=== PATIENT | male | born 1945 | race Caucasian/White ===

== ENCOUNTER 2017-01-16 14:18 | Outpatient (CLI) | payer MEDICARE, OTHER ==
[2017-01-16 14:44] LABS: BASOPHILS # (AUTO) 0.1 10^3/uL (0.0-0.1); BASOPHILS % (AUTO) 0.8 %; EOSINOPHILS # (AUTO) 0.1 10^3/uL (0.0-0.7); EOSINOPHILS % (AUTO) 2.2 %; HCT - HEMATOCRIT 39.7 % (42.0-52.0); HGB - HEMOGLOBIN 13.3 g/dL (14.0-18.0); LYMPHOCYTES # (AUTO) 1.9 10^3/uL (1.5-3.5); LYMPHOCYTES % (AUTO) 28.1 %; MEAN CORPUSCULAR HEMOGLOBIN 30.5 pg (27.0-31.0); MEAN CORPUSCULAR HGB CONC 33.4 g/dL (32.0-36.0); MEAN CORPUSCULAR VOLUME 91.4 fL (80.0-94.0); MEAN PLATELET VOLUME 6.8 fL (7.4-11.4); MONOCYTES # (AUTO) 0.5 10^3/uL (0.0-1.0); MONOCYTES % (AUTO) 8.3 %; NEUTROPHILS % (AUTO) 60.6 %; RED BLOOD COUNT 4.34 10^6/uL (4.70-6.10); RED CELL DISTRIBUTION WIDTH 13.7 % (12.0-15.0); UNCORRECTED WHITE BLOOD COUNT 6.6 x10^3/uL; WHITE BLOOD COUNT 6.6 x10^3/uL (4.8-10.8)
[2017-01-16 15:00] LABS: ALBUMIN/GLOBULIN RATIO 1.3 (1.0-2.2); BILIRUBIN,TOTAL 0.4 mg/dL (0.2-1.0); CALCIUM 9.4 mg/dL (8.5-10.3); CREATININE 1.1 mg/dL (0.6-1.2); POTASSIUM 4.5 mmol/L (3.5-5.0); TOTAL PROTEIN 7.3 g/dL (6.7-8.2)
== END 2017-01-16 14:19 | disposition home or self-care (01) ==
LOC: LAB 14:18
PROVIDERS: ATTEND Internal Medicine Hematology & Oncology
DX: C34.90 Malignant neoplasm of unspecified part of unspecified bronchus or lung (principal)
CPT/HCPCS: 36415; 80053; 85025

== ENCOUNTER 2017-12-27 14:27 | Outpatient (CLI) | payer MEDICARE, OTHER ==
[2017-12-27 15:08] LABS: ALBUMIN 3.9 g/dL (3.2-5.5); ALBUMIN/GLOBULIN RATIO 1.1 (1.0-2.2); BILIRUBIN,TOTAL 0.6 mg/dL (0.2-1.0); CALCIUM 9.2 mg/dL (8.5-10.3); CREATININE 0.9 mg/dL (0.6-1.2); TOTAL PROTEIN 7.4 g/dL (6.7-8.2)
[2017-12-27 15:13] LABS: BASOPHILS # (AUTO) 0.1 10^3/uL (0.0-0.1); BASOPHILS % (AUTO) 1.1 %; EOSINOPHILS # (AUTO) 0.1 10^3/uL (0.0-0.7); EOSINOPHILS % (AUTO) 2.2 %; HGB - HEMOGLOBIN 12.9 g/dL (14.0-18.0); LYMPHOCYTES # (AUTO) 1.9 10^3/uL (1.5-3.5); LYMPHOCYTES % (AUTO) 27.9 %; MEAN CORPUSCULAR HEMOGLOBIN 32.6 pg (27.0-31.0); MEAN CORPUSCULAR HGB CONC 35.6 g/dL (32.0-36.0); MEAN CORPUSCULAR VOLUME 91.7 fL (80.0-94.0); MEAN PLATELET VOLUME 7.4 fL (7.4-11.4); MONOCYTES # (AUTO) 0.7 10^3/uL (0.0-1.0); MONOCYTES % (AUTO) 9.7 %; NEUTROPHILS % (AUTO) 59.1 %; PLT - PLATELET COUNT 282 10^3/uL (130-450); RED BLOOD COUNT 3.96 10^6/uL (4.70-6.10); RED CELL DISTRIBUTION WIDTH 14.2 % (12.0-15.0); WHITE BLOOD COUNT 6.8 x10^3/uL (4.8-10.8)
== END 2017-12-27 14:28 | disposition home or self-care (01) ==
LOC: LAB 14:27
PROVIDERS: ATTEND Internal Medicine Hematology & Oncology
DX: C34.90 Malignant neoplasm of unspecified part of unspecified bronchus or lung (principal)
CPT/HCPCS: 36415; 80053; 85025

== ENCOUNTER 2018-01-02 12:44 | Outpatient (CLI) | payer MEDICARE, OTHER ==
--- NOTE | 2018-01-02 22:01 | CT Report ---
Reason: SHORTNESS OF BREATH Procedure Date: 01/02/2018 Accession Number: [id number] / [id number] Procedure: CT - Chest W/O CPT Code: FULL RESULT: EXAM: CT CHEST WITHOUT CONTRAST. EXAM DATE: 01/02/2018 12:58 PM. CLINICAL HISTORY: Shortness of breath. COMPARISONS: Chest without 01/16/2017 2:53 PM. TECHNIQUE: Routine helical CT imaging was performed through the chest. IV contrast: None. Reconstructions: Coronal and sagittal. In accordance with CT protocol optimization, one or more of the following dose reduction techniques were utilized for this exam: automated exposure control, adjustment of mA and/or KV based on patient size, or use of iterative reconstructive technique. FINDINGS: Lungs/Pleura: There is a small granuloma in the right mid lung. There are no soft tissue pulmonary nodules. There are no masses nor infiltrates. Mediastinum: The heart is not enlarged. There are moderately advanced atherosclerotic vascular calcifications of the coronary arteries. Bones: Unremarkable. Visualized Abdomen: There is a cyst in the left lobe of the liver which measures 31 mm and a cyst along the anterior border of the right kidney measuring 30 mm x 16 mm. There is cholelithiasis. Other: None. IMPRESSION: 1. No evidence for recurrent mass nor metastatic disease to the chest. 2. Calcified granuloma in the right midlung. 3. Moderately advanced atherosclerotic vascular calcifications. 4. Cholelithiasis. 5. Hepatic cyst and renal cyst. No significant changes. RADIA
== END 2018-01-02 12:45 | disposition home or self-care (01) ==
LOC: DI 12:44
PROVIDERS: ATTEND Internal Medicine Hematology & Oncology
DX: J84.10 Pulmonary fibrosis, unspecified (principal); I25.10 Atherosclerotic heart disease of native coronary artery without angina pectoris; K80.20 Calculus of gallbladder without cholecystitis without obstruction; K76.89 Other specified diseases of liver; Q61.01 Congenital single renal cyst
CPT/HCPCS: 71250

== ENCOUNTER 2018-05-16 04:12 | Outpatient (CLI) | payer MEDICARE, OTHER | END 2018-05-16 04:13 | disposition critical access hospital (66) | LOC: EMS 04:12 | PROVIDERS: ATTEND Surgery | DX: R11.2 Nausea with vomiting, unspecified (principal) | CPT/HCPCS: A0425; A0427 ==

== ENCOUNTER 2018-05-16 04:31 | Emergency (ER) | payer MEDICARE, OTHER ==
[2018-05-16] MEDS ORDERED: SODIUM CHLORIDE 0.9% 1,000 ML IV STA (04:35)
[2018-05-16] MEDS ORDERED: IOVERSOL 320 100 ML VIAL IVP ONE ×2 (04:54→05:42)
[2018-05-16 05:02] LABS: BASOPHILS # (AUTO) 0.1 10^3/uL (0.0-0.1); BASOPHILS % (AUTO) 0.5 %; EOSINOPHILS % (AUTO) 0.4 %; HGB - HEMOGLOBIN 13.4 g/dL (14.0-18.0); LYMPHOCYTES # (AUTO) 1.4 10^3/uL (1.5-3.5); LYMPHOCYTES % (AUTO) 14.1 %; MEAN CORPUSCULAR HEMOGLOBIN 30.7 pg (27.0-31.0); MEAN CORPUSCULAR HGB CONC 33.3 g/dL (32.0-36.0); MEAN CORPUSCULAR VOLUME 92.2 fL (80.0-94.0); MEAN PLATELET VOLUME 7.3 fL (7.4-11.4); MONOCYTES # (AUTO) 0.8 10^3/uL (0.0-1.0); MONOCYTES % (AUTO) 8.4 %; NEUTROPHILS # (AUTO) 7.5 10^3/uL (1.5-6.6); NEUTROPHILS % (AUTO) 76.6 %; PLT - PLATELET COUNT 274 10^3/uL (130-450); RED BLOOD COUNT 4.37 10^6/uL (4.70-6.10); RED CELL DISTRIBUTION WIDTH 13.3 % (12.0-15.0); WHITE BLOOD COUNT 9.8 x10^3/uL (4.8-10.8)
[2018-05-16 05:14] LABS: ALBUMIN 3.7 g/dL (3.2-5.5); ALBUMIN/GLOBULIN RATIO 1.2 (1.0-2.2); BILIRUBIN,TOTAL 0.9 mg/dL (0.2-1.0); CALCIUM 8.7 mg/dL (8.5-10.3); CREATININE 1.1 mg/dL (0.6-1.2); TOTAL PROTEIN 6.8 g/dL (6.7-8.2)
--- NOTE | 2018-05-16 05:22 | XRAY Report ---
Reason: Chest Pain Procedure Date: 05/16/2018 Accession Number: [id number] / [id number] Procedure: XR - Chest 1 View X-Ray CPT Code: 69071 FULL RESULT: EXAM: CHEST RADIOGRAPHY EXAM DATE: 05/16/2018 05:12 AM. CLINICAL HISTORY: Chest pain. COMPARISON: CHEST W/O 01/02/2018 12:56 PM. TECHNIQUE: 1 view. FINDINGS: Lungs/Pleura: Previous left upper lobectomy. No focal pneumonia or edema. Known emphysema. Small right mid lung calcified granuloma. Mediastinum: Within exam limitations, the cardiomediastinal contour is normal. Other: None. IMPRESSION: Emphysema without acute process seen in the chest. RADIA
--- NOTE | 2018-05-16 06:12 | CT Report ---
Reason: Vomiting Procedure Date: 05/16/2018 Accession Number: [id number] / [id number] Procedure: CT - Abdomen/Pelvis W CPT Code: FULL RESULT: EXAM: CT ABDOMEN AND PELVIS EXAM DATE: 05/16/2018 05:46 AM. CLINICAL HISTORY: Vomiting. COMPARISONS: None. TECHNIQUE: Routine helical CT imaging was performed through the abdomen and pelvis. IV contrast: 80ml optiray 320. Enteric contrast: No. Reconstructions: Coronal and sagittal. In accordance with CT protocol optimization, one or more of the following dose reduction techniques were utilized for this exam: automated exposure control, adjustment of mA and/or KV based on patient size, or use of iterative reconstructive technique. FINDINGS: Lung Bases: Mild atelectasis or infiltrate at the right base. Coronary artery calcifications. Liver: Fatty infiltration. Cysts measuring up to 3.2 cm. Gallbladder/Bile Ducts: Calcified stone at the neck measuring 7 mm. There could be early cholecystitis. Spleen: Normal. Pancreas: Normal. Adrenal Glands: Normal. Kidneys: Small bilateral cysts. No masses or hydronephrosis. Peritoneal Cavity/Bowel: No bowel obstruction seen. Colonic diverticula. No definite diverticulitis. No free air or free fluid. Umbilical hernia containing fat. Appendix is not well seen. No evidence of appendicitis. Pelvic Organs: Normal. The bladder and visualized pelvic organs are within normal limits. Vasculature: Moderate atherosclerosis. No aortic aneurysm. Bones: No aggressive lytic or blastic abnormality seen. Other: None. IMPRESSION: 1. There is a 7 mm stone at the gallbladder neck. Early cholecystitis not excluded. 2. Mild right basilar atelectasis or infiltrate. Coronary artery calcifications. 3. Fatty liver. Liver cysts measuring up to 3.2 cm. 4. Colonic diverticula. No definite diverticulitis. RADIA
--- NOTE | 2018-05-16 06:42 | ED Physician Documentation ---
PD HPI NVD - Stated complaint Stated Complaint: N/V - Chief complaint Chief Complaint: Abd Pain - History obtained from History obtained from: Patient - History of Present Illness Timing - onset: How many days ago (4) Timing - duration: Days (4) Timing - details: Gradual onset Pain level max: 3 Pain level now: 3 Associated symptoms: Abdominal pain Contributing factors: No: Sick contact, Bad food, Travel Improved by: No: Eating, Laying still Worsened by: No: Eating, Moving, Breathing Review of Systems Ten Systems: 10 systems reviewed and negative Constitutional: reports: Reviewed and negative Eyes: reports: Reviewed and negative Ears: reports: Reviewed and negative Nose: reports: Reviewed and negative Throat: reports: Reviewed and negative Cardiac: reports: Reviewed and negative Respiratory: reports: Reviewed and negative GI: reports: Reviewed and negative : reports: Reviewed and negative Skin: reports: Reviewed and negative Musculoskeletal: reports: Reviewed and negative Neurologic: reports: Reviewed and negative Psychiatric: reports: Reviewed and negative Endocrine: reports: Reviewed and negative Immunocompromised: reports: Reviewed and negative PD PAST MEDICAL HISTORY - Past Medical History Past Medical History: Yes Respiratory: Other Other Past Medical History: Lung CA 4 years ago - Past Surgical History Past Surgical History: Yes Cardiovascular: Lobectomy - Present Medications Home Medications: Ambulatory Orders Medication Instructions Recorded Confirmed No Known Home Medications 05/16/18 05/16/18 - Allergies Allergies/Adverse Reactions: Allergies Allergy/AdvReac Type Severity Reaction Status Date / Time No Known Drug Allergies Allergy Verified 05/16/18 04:37 - Social History Does the pt smoke?: No Smoking Status: Never smoker Does the pt drink ETOH?: No Does the pt have substance abuse?: No - Immunizations Immunizations are current?: Yes - POLST Patient has POLST: No PD ED PE NORMAL - Vitals Vital signs reviewed: Yes - General General: Alert and oriented X 3, No acute distress - HEENT HEENT: PERRL - Neck Neck: Supple, no meningeal sign - Cardiac Cardiac: RRR, No murmur - Respiratory Respiratory: Clear bilaterally - Abdomen Abdomen: Normal bowel sounds, Soft, Non tender, Non distended - Derm Derm: Warm and dry - Extremities Extremities: No deformity - Neuro Neuro: Alert and oriented X 3 - Psych Psych: Normal mood, Normal affect Results - Vitals Vitals: Vital Signs - 24 hr 05/16/18 05/16/18 05/16/18 04:32 04:46 05:45 Temperature 37.2 C Heart Rate 77 67 78 Respiratory 16 12 20 Rate Blood Pressure 151/86 H 138/80 H 155/95 H O2 Saturation 95 97 97 05/16/18 06:37 Temperature Heart Rate 66 Respiratory 24 Rate Blood Pressure 138/84 H O2 Saturation 95 Oxygen O2 Source Room air - EKG (time done) 1641 Rhythm: NSR [place]: Normal Intervals: Normal LA, QRS normal. No: Wide QRS QRS: Normal Ischemia: Normal ST segments - Labs Labs: Laboratory Tests 05/16/18 05/16/18 05/16/18 04:45 04:45 04:45 WBC 9.8 RBC 4.37 L Hgb 13.4 L Hct 40.3 L MCV 92.2 MCH 30.7 MCHC 33.3 RDW 13.3 Plt Count 274 MPV 7.3 L Neut # (Auto) 7.5 H Lymph # (Auto) 1.4 L [place] # (Auto) 0.8 Eos # (Auto) 0.0 Baso # (Auto) 0.1 Absolute Nucleated RBC 0.00 Nucleated RBC % 0.0 Sodium 136 Potassium 3.7 Chloride 100 L Carbon Dioxide 27 Anion Gap 9.0 BUN 22 H Creatinine 1.1 Estimated GFR (MDRD) 65 L Glucose 128 H Calcium 8.7 Total Bilirubin 0.9 AST 18 ALT 15 Alkaline Phosphatase 100 Troponin I < 0.04 Total Protein 6.8 Albumin 3.7 Globulin 3.1 Albumin/Globulin Ratio 1.2 Lipase 28 05/16/18 04:45 WBC RBC Hgb Hct MCV MCH MCHC RDW Plt Count MPV Neut # (Auto) Lymph # (Auto) [place] # (Auto) Eos # (Auto) Baso # (Auto) Absolute Nucleated RBC Nucleated RBC % Sodium Potassium Chloride Carbon Dioxide Anion Gap BUN Creatinine Estimated GFR (MDRD) Glucose Calcium Total Bilirubin AST ALT Alkaline Phosphatase Troponin I Total Protein Albumin Globulin Albumin/Globulin Ratio Lipase 25 - Rads (name of study) CT Abd Pel Radiology: Final report received (Gallbladder in neck, possible cholecystitis) PD MEDICAL DECISION MAKING - ED course Complexity details: reviewed results, re-evaluated patient, considered differential, d/w patient ED course: 73-year-old male with 4 days of vomiting. Possible cholecystitis on CT scan. Ultrasound pending at time of sign out to incoming provider.
--- NOTE | 2018-05-16 07:36 | Ultrasound Report ---
Reason: RUQ abd pain, vomiting Procedure Date: 05/16/2018 Accession Number: [id number] / [id number] Procedure: US - Abdomen Limited CPT Code: FULL RESULT: EXAM: ABDOMEN ULTRASOUND LIMITED, RUQ EXAM DATE: 05/16/2018 07:00 AM. CLINICAL HISTORY: RUQ abd pain, vomiting. COMPARISON: CT ABDOMEN/PELVIS W/ 05/16/2018 5:29 AM. TECHNIQUE: Real-time scanning was performed with static images obtained. FINDINGS: Liver: Normal in size and echotexture. The right lobe of liver measures up to 15.6 cm. There are multiple hepatic cysts, the largest of which measures approximately 3 cm in diameter, as seen on recent prior CT. In the anterior aspect of the right lobe of the liver, there is a homogeneous hyperechoic ovoid focus measuring 0.7 x 0.6 x 0.4 cm. Main portal vein flow: Hepatopetal. Gallbladder: A mobile shadowing gallstone is present. No gallbladder wall thickening, pericholecystic fluid, or sonographic Lino sign. Biliary System: CBD measures 4 mm. No intrahepatic or extrahepatic ductal dilatation. Other: No right-sided hydronephrosis. There is a simple exophytic renal cortical cyst at the superior pole of the right kidney measuring up to 2.7 cm, as seen on recent prior CT. IMPRESSION: 1. Cholelithiasis. No evidence of acute cholecystitis. 2. Subcentimeter ovoid homogeneous hyperechoic focus in the right lobe of the liver. Incidental homogeneous hyperechoic liver lesions discovered in patients without known malignancy or liver disease are almost always hepatic hemangiomas. Tavo Spivey., Jas Bianchi., Richa Kline., Tristen Waterman. FRANCISCO
--- NOTE | 2018-05-16 07:54 | ED Physician Documentation ---
PD HPI NVD - Stated complaint Stated Complaint: N/V - Chief complaint Chief Complaint: Abd Pain PD PAST MEDICAL HISTORY - Past Medical History Past Medical History: Yes Respiratory: Other Other Past Medical History: Lung CA 4 years ago - Past Surgical History Past Surgical History: Yes Cardiovascular: Lobectomy - Present Medications Home Medications: Ambulatory Orders Medication Instructions Recorded Confirmed Ondansetron Odt [Zofran] 4 mg TL Q6H PRN #10 tablet 05/16/18 - Allergies Allergies/Adverse Reactions: Allergies Allergy/AdvReac Type Severity Reaction Status Date / Time No Known Drug Allergies Allergy Verified 05/16/18 04:37 - Social History Does the pt smoke?: No Smoking Status: Never smoker Does the pt drink ETOH?: No Does the pt have substance abuse?: No - Immunizations Immunizations are current?: Yes - POLST Patient has POLST: No Results - Vitals Vitals: Vital Signs - 24 hr 05/16/18 05/16/18 05/16/18 04:32 04:46 05:45 Temperature 37.2 C Heart Rate 77 67 78 Respiratory 16 12 20 Rate Blood Pressure 151/86 H 138/80 H 155/95 H O2 Saturation 95 97 97 05/16/18 05/16/18 06:37 08:07 Temperature Heart Rate 66 70 Respiratory 24 22 Rate Blood Pressure 138/84 H 139/79 H O2 Saturation 95 96 Oxygen O2 Source Room air - Labs Labs: Laboratory Tests 05/16/18 05/16/18 05/16/18 04:45 04:45 04:45 WBC 9.8 RBC 4.37 L Hgb 13.4 L Hct 40.3 L MCV 92.2 MCH 30.7 MCHC 33.3 RDW 13.3 Plt Count 274 MPV 7.3 L Neut # (Auto) 7.5 H Lymph # (Auto) 1.4 L [place] # (Auto) 0.8 Eos # (Auto) 0.0 Baso # (Auto) 0.1 Absolute Nucleated RBC 0.00 Nucleated RBC % 0.0 Sodium 136 Potassium 3.7 Chloride 100 L Carbon Dioxide 27 Anion Gap 9.0 BUN 22 H Creatinine 1.1 Estimated GFR (MDRD) 65 L Glucose 128 H Calcium 8.7 Total Bilirubin 0.9 AST 18 ALT 15 Alkaline Phosphatase 100 Troponin I < 0.04 Total Protein 6.8 Albumin 3.7 Globulin 3.1 Albumin/Globulin Ratio 1.2 Lipase 28 05/16/18 04:45 WBC RBC Hgb Hct MCV MCH MCHC RDW Plt Count MPV Neut # (Auto) Lymph # (Auto) [place] # (Auto) Eos # (Auto) Baso # (Auto) Absolute Nucleated RBC Nucleated RBC % Sodium Potassium Chloride Carbon Dioxide Anion Gap BUN Creatinine Estimated GFR (MDRD) Glucose Calcium Total Bilirubin AST ALT Alkaline Phosphatase Troponin I Total Protein Albumin Globulin Albumin/Globulin Ratio Lipase 25 - Rads (name of study) u/s abdomen Radiology: Prelim report reviewed (Impression: 1. Cholelithiasis. No evidence of acute cholecystitis. Subcentimeter ovoid homogeneous hyperechoic focus in the right lobe of the liver. Incidental homogenous hyperechoic liver lesions discovered in patients with out known malignancy or liver disease are almost always hepatic hemangiomas), EMP read indepedently, See rad report Procedures - IVC sono (time) 0825 Bedside IVC sono: IVC measures (cm) (1.07), IVC collapsed c insp (cm) (complete), Dehydration (est 1 + liter deficit after 1st liter is in.) PD MEDICAL DECISION MAKING - ED course Complexity details: considered differential, d/w patient ED course: Previously well 73-year-old male has developed nausea and vomiting for the past 4 days. He denies any abdominal pain associated with this states it is not been able to hold any food down he has been able to hold only minimal amounts of liquids down. He denies any postprandial pain by history. CT scan of his abdomen demonstrates no evidence of an obstruction and there is evidence of cholecystitis on CT scan. This is not confirmed on formal ultrasound. There are mobile gallstones. The patient has improvement immediately with the use of the Zofran. He is administered a liter of saline and at the time of my evaluation he continues to have a deficit estimated at 1+ liter and a second liter of saline is administered. Departure - Departure Disposition: 01 Home, Self Care Clinical Impression: Gastroenteritis, Dehydration Instructions: ED Dehydration, ED Gastroenteritis Viral Follow-Up: Rodrick Darnell MD [Primary Care Provider] - Prescriptions: Ondansetron Odt [Zofran] 4 mg TL Q6H PRN #10 tablet PRN Reason: Nausea / Vomiting
[2018-05-16] MEDS ORDERED: SODIUM CHLORIDE 0.9% 1,000 ML IV ONE (08:28)
[2018-05-16] MEDS ORDERED: ONDANSETRON ODT 4 MG TABLET TL STA (09:53)
[2018-05-16 10:08] VITALS: BP 145/83
== END 2018-05-16 10:08 | disposition home or self-care (01) ==
LOC: EDUNIT# → ED 04:31
DX: K52.9 Noninfective gastroenteritis and colitis, unspecified (principal); E86.0 Dehydration; K80.20 Calculus of gallbladder without cholecystitis without obstruction; K76.9 Liver disease, unspecified; Z85.118 Personal history of other malignant neoplasm of bronchus and lung
CPT/HCPCS: 36415; 71045; 74177; 76705; 80053; 83690; 84484; 85025; 93005; 96360; 96361; 99283; 99284; Q0162; Q9967

== ENCOUNTER 2018-05-21 10:58 | Emergency (ER) | payer MEDICARE, OTHER ==
[2018-05-21 13:05] LABS: BASOPHILS # (AUTO) 0.1 10^3/uL (0.0-0.1); EOSINOPHILS % (AUTO) 0.3 %; HGB - HEMOGLOBIN 14.6 g/dL (14.0-18.0); LYMPHOCYTES # (AUTO) 1.5 10^3/uL (1.5-3.5); LYMPHOCYTES % (AUTO) 16.5 %; MEAN CORPUSCULAR HEMOGLOBIN 30.4 pg (27.0-31.0); MEAN CORPUSCULAR HGB CONC 33.6 g/dL (32.0-36.0); MEAN CORPUSCULAR VOLUME 90.5 fL (80.0-94.0); MEAN PLATELET VOLUME 7.5 fL (7.4-11.4); MONOCYTES # (AUTO) 0.7 10^3/uL (0.0-1.0); MONOCYTES % (AUTO) 7.9 %; NEUTROPHILS # (AUTO) 6.7 10^3/uL (1.5-6.6); NEUTROPHILS % (AUTO) 74.3 %; PLT - PLATELET COUNT 309 10^3/uL (130-450); RED CELL DISTRIBUTION WIDTH 13.6 % (12.0-15.0); WHITE BLOOD COUNT 9.1 x10^3/uL (4.8-10.8)
[2018-05-21 13:16] LABS: ALBUMIN 3.9 g/dL (3.2-5.5); ALBUMIN/GLOBULIN RATIO 1.1 (1.0-2.2); BILIRUBIN,TOTAL 0.7 mg/dL (0.2-1.0); CREATININE 1.1 mg/dL (0.6-1.2); TOTAL PROTEIN 7.6 g/dL (6.7-8.2)
[2018-05-21 13:20] LABS: CALCIUM 9.3 mg/dL (8.5-10.3)
[2018-05-21] MEDS ORDERED: SODIUM CHLORIDE 0.9% 1,000 ML IV ONE (13:35)
[2018-05-21] MEDS ORDERED: METOCLOPRAMIDE 10 MG/2 ML VIAL IVP STA (13:36)
--- NOTE | 2018-05-21 13:38 | ED Physician Documentation ---
History of Present Illness - Stated complaint Stated Complaint: VOMITING - Chief complaint Chief Complaint: General - History obtained from History obtained from: Patient, Family (daughter) - History of Present Illness Timing: Other (This is an otherwise very healthy 73-year-old gentleman who is been sick for 12 days with vomiting. He has had decreased oral intake and really is not taking any solids. Therefore has had decreased bowel movements as well. There is mild flank pain bilaterally with it which is worse if he turns in either direction and that sets off the retching. He was seen here last week, CT scan labs were done. He had a gallstone and some liver masses but no acute findings or bowel obstruction. He has a history of remote lung cancer in remission status post lobectomy and chemotherapy 3 years ago. No history of abdominal surgeries.) Review of Systems Constitutional: reports: Fatigue. denies: Fever, Chills Nose: denies: Rhinorrhea / runny nose, Congestion Cardiac: denies: Chest pain / pressure, Palpitations Respiratory: denies: Dyspnea, Cough GI: reports: Abdominal Pain (midl), Nausea, Vomiting, Constipation. denies: Diarrhea, Hematemesis, Bloody / black stool Musculoskeletal: denies: Neck pain, Back pain Neurologic: reports: Headache (mild) PD PAST MEDICAL HISTORY - Past Medical History Past Medical History: Yes Respiratory: Other (Lung CA 2014) - Past Surgical History Past Surgical History: Yes Cardiovascular: Lobectomy - Present Medications Home Medications: Ambulatory Orders Medication Instructions Recorded Confirmed Ondansetron Odt [Zofran] 4 mg TL Q6H PRN #10 tablet 05/16/18 - Allergies Allergies/Adverse Reactions: Allergies Allergy/AdvReac Type Severity Reaction Status Date / Time No Known Drug Allergies Allergy Verified 05/21/18 11:25 - Living Situation Living Situation: reports: Alone - Social History Does the pt smoke?: No Smoking Status: Never smoker Does the pt drink ETOH?: No Does the pt have substance abuse?: No - Family History Family history: reports: Non contributory - Immunizations Immunizations are current?: Yes - POLST Patient has POLST: No PD ED PE NORMAL - Vitals Vital signs reviewed: Yes - General General: Alert and oriented X 3, No acute distress (except retching) - HEENT HEENT: PERRL, EOMI - Neck Neck: Supple, no meningeal sign, No bony TTP - Cardiac Cardiac: RRR, No murmur - Respiratory Respiratory: No respiratory distress, Clear bilaterally - Abdomen Abdomen: Normal bowel sounds, Soft, Non tender - Back Back: No CVA TTP, No spinal TTP - Derm Derm: Normal color, Warm and dry - Extremities Extremities: No edema, No calf tenderness / cord - Neuro Neuro: Alert and oriented X 3, rail bonder 2-12 intact, Normal speech, Other (On reexamination after broadening of the differential diagnosis he does seem to have ataxia of both hands, right worse than left and ataxia of the right leg, not the left. There is no truncal ataxia.) Eye Opening: Spontaneous Motor: Obeys Commands Verbal: Oriented GCS Score: 15 - Psych Psych: Normal mood, Normal affect Results - Vitals Vitals: Vital Signs - 24 hr 05/21/18 05/21/18 11:20 13:25 Temperature 36.3 C L Heart Rate 60 71 Respiratory 16 14 Rate Blood Pressure 146/76 H 146/76 H O2 Saturation 97 97 Oxygen O2 Source Room air - Labs Labs: Laboratory Tests 05/21/18 05/21/18 12:54 12:54 WBC 9.1 RBC 4.80 Hgb 14.6 Hct 43.4 MCV 90.5 MCH 30.4 MCHC 33.6 RDW 13.6 Plt Count 309 MPV 7.5 Neut # (Auto) 6.7 H Lymph # (Auto) 1.5 [place] # (Auto) 0.7 Eos # (Auto) 0.0 Baso # (Auto) 0.1 Absolute Nucleated RBC 0.01 Nucleated RBC % 0.1 Sodium 137 Potassium 3.5 Chloride 97 L Carbon Dioxide 31 Anion Gap 9.0 BUN 23 H Creatinine 1.1 Estimated GFR (MDRD) 65 L Glucose 123 H Calcium 9.3 Total Bilirubin 0.7 AST 19 ALT 21 Alkaline Phosphatase 100 Total Protein 7.6 Albumin 3.9 Globulin 3.7 Albumin/Globulin Ratio 1.1 Lipase 45 - Rads (name of study) CT A/P Radiology: EMP read contemporaneously (normal) CT Head Radiology: EMP read contemporaneously (4.1x4.8x3.7 heterogenous mass c/w met with edema) PD MEDICAL DECISION MAKING - ED course ED course: This is a 73-year-old gentleman with vomiting and failure to thrive at home. The cause of the vomiting is unclear. He does not really have abdominal pain. He is not obstructed. It is concerning that he was very unsteady on his feet despite only very mild dehydration on labs and he really was a 2 person assist to get him out of bed. This would be more concerning for a central neurologic cause and he is sent back to CT for pictures of his head. The CT does show a cerebellar mass, this is concerning for metastasis. His previous cancer care was at [facility] and he like to go back there. He does need transport for higher level of care for neurosurgery consultation and potential intervention. He was given Decadron IV. He was accepted to [place] by Dr. Justice Mendes at 4:50 PM. [place] were completed. Departure - Departure Disposition: 02 Transfer Acute Care Hosp Clinical Impression: Cerebellar tumor Vomiting Qualifiers: Vomiting type: unspecified Vomiting Intractability: intractable Nausea presence: with nausea Qualified Code(s): R11.2 - Nausea with vomiting, unspecified Condition: Serious
[2018-05-21] MEDS ORDERED: IOVERSOL 320 100 ML VIAL IVP ONE ×2 (13:48→14:37)
--- NOTE | 2018-05-21 14:29 | CT Report ---
Reason: IV only, abd pain, vomiting Procedure Date: 05/21/2018 Accession Number: [id number] / [id number] Procedure: CT - Abdomen/Pelvis W CPT Code: FULL RESULT: EXAM: CT ABDOMEN AND PELVIS EXAM DATE: 05/21/2018 02:11 PM. CLINICAL HISTORY: IV only, abdominal pain, vomiting. COMPARISONS: ABDOMEN/PELVIS W/ 05/16/2018 5:29 AM. TECHNIQUE: Routine helical CT imaging was performed through the abdomen and pelvis. IV contrast: opti 320 100mL. Enteric contrast: No. Reconstructions: Coronal and sagittal. In accordance with CT protocol optimization, one or more of the following dose reduction techniques were utilized for this exam: automated exposure control, adjustment of mA and/or KV based on patient size, or use of iterative reconstructive technique. FINDINGS: Lung Bases: Unremarkable. Liver: There is a hepatic cyst as well as hepatic hypodensities, which are too small to characterize. Gallbladder/Bile Ducts: Gallbladder demonstrates cholelithiasis without evidence of cholecystitis. Spleen: Normal. Pancreas: Normal. Adrenal Glands: Stable thickening of the left adrenal gland. Right adrenal gland is normal. Kidneys: Bilateral renal cysts and hypodensities, which are too small to characterize. Calcification in the left kidney is felt to be vascular in nature. Peritoneal Cavity/Bowel: Diverticulosis without diverticulitis. No free fluid, free air or adenopathy. No masses or acute inflammatory process. The appendix is not visualized. No pericecal fat stranding. Pelvic Organs: Normal. The bladder and visualized pelvic organs are within normal limits. Vasculature: Atherosclerosis. Bones: No significant abnormality. Other: None. IMPRESSION: The etiology of the patient's abdominal pain is not identified. RADIA
[2018-05-21] MEDS ORDERED: ONDANSETRON 4 MG/2 ML VIAL IVP STA ×2 (15:49→18:35)
[2018-05-21] MEDS ORDERED: DEXAMETHASONE 10 MG/ML VIAL IVP STA (15:49)
--- NOTE | 2018-05-21 16:41 | CT Report ---
Reason: dizzy clark, nausea Procedure Date: 05/21/2018 Accession Number: [id number] / [id number] Procedure: CT - HEAD WO CPT Code: FULL RESULT: EXAM: CT HEAD EXAM DATE: 05/21/2018 03:43 PM. CLINICAL HISTORY: Dizzy clark, nausea. History of lung cancer. COMPARISON: None.. TECHNIQUE: Multiaxial CT images were obtained from the foramen magnum to the vertex. Reformats: Sagittal and coronal. IV contrast: None. In accordance with CT protocol optimization, one or more of the following dose reduction techniques were utilized for this exam: automated exposure control, adjustment of mA and/or KV based on patient size, or use of iterative reconstructive technique. FINDINGS: The patient had previously received contrast for a CT abdomen/pelvis. Brain and ventricles: Heterogeneously hyperdense right cerebellar lesion measures 4.1 x 4.9 x 3.7 cm (image 9 series 3). There is surrounding hypodense edema. The lesion causes local mass-effect with compression and mild leftward deviation of the fourth ventricle. The right cerebellar tonsil is lower than the left without significant herniation. The lateral and third ventricles are mildly enlarged without adjacent hypoattenuation, likely due to volume loss. No midline shift. No additional parenchymal lesion or hemorrhage. No extra-axial hemorrhage. Sinuses and Orbits: Imaged paranasal sinuses, orbits, and mastoids show no significant abnormality. Bones: No evidence of fracture or calvarial defect. Other: None. IMPRESSION: Right cerebellar lesion as described, which is favored to represent metastatic disease. There is regional mass-effect with mild surrounding edema and compression of the fourth ventricle. Hyperdense appearance of the lesion could be due to previously administered contrast for a CT abdomen/pelvis versus associated hemorrhage although acute hemorrhage is considered unlikely. RADIA The call report notification system was initiated by Dr. Rik Hawkins at 04:34 PM on 05/21/2018. The above call report findings were discussed with Jose Miguel Ardon by Dr. Rik Hawkins at 04:39 PM on 05/21/2018.
[2018-05-21 17:24] VITALS: BP 140/74
[2018-05-21] MEDS ORDERED: ONDANSETRON 4 MG/2 ML VIAL ONE (18:41)
== END 2018-05-21 18:40 | disposition short-term general hospital (02) ==
LOC: ED 10:58
DX: D49.6 Neoplasm of unspecified behavior of brain (principal); R11.2 Nausea with vomiting, unspecified; E86.0 Dehydration; R27.0 Ataxia, unspecified; Z08 Encounter for follow-up examination after completed treatment for malignant neoplasm; Z85.118 Personal history of other malignant neoplasm of bronchus and lung
CPT/HCPCS: 36415; 70450; 74177; 80053; 83690; 85025; 96361; 96374; 96375; 96376; 99283; 99284; J2765; Q9967

== ENCOUNTER 2018-05-21 18:41 | Outpatient (CLI) | payer MEDICARE, OTHER | END 2018-05-21 18:42 | disposition home or self-care (01) | LOC: EMS 18:41 | PROVIDERS: ATTEND Surgery | DX: D49.6 Neoplasm of unspecified behavior of brain (principal) | CPT/HCPCS: A0425; A0426 ==